=== PATIENT | female | born 1995 | race Caucasian/White ===

== ENCOUNTER 2022-12-29 00:59 | Emergency (ER) | payer BC ==
[2022-12-29] MEDS ORDERED: HYDROmorphone 1 MG/ML Syringe IVPUSH STA (03:39)
[2022-12-29] MEDS ORDERED: Ondansetron 4 MG/2 ML SDV IVPUSH ONE (03:39)
[2022-12-29] MEDS ORDERED: Sodium Chloride 0.9% 1,000 ML IV SCH (03:45)
[2022-12-29 05:00] LABS: A/G RATIO 0.6 (1-2); ALBUMIN 2.6 g/dl (3.4-5.0); ANION GAP 13.1 (5-15); BILIRUBIN TOTAL 0.8 mg/dL (0.2-1.0); BUN/CREATININE RATIO 11.7 (14-18); CALCIUM 8.7 mg/dL (8.5-10.1); CREATININE 0.6 mg/dL (0.55-1.02); EST CRCL DRUG DOSING (CG) 111.39 mL/min; PROTEIN TOTAL,TP 6.8 g/dl (6.4-8.2)
[2022-12-29 05:07] LABS: HEMATOCRIT 35.8 % (34.1-44.9); MEAN CORPUSCULAR HEMOGLOBIN 29.6 pg (25.6-32.2); MEAN CORPUSCULAR HGB CONC 33.5 g/dl (32.2-35.5); MEAN CORPUSCULAR VOLUME 88.2 fl (79.4-94.8); MEAN PLATELET VOLUME 11.9 fl (9.4-12.3); PLATELET COUNT,PLT 261 K/mm3 (182-369); RED BLOOD CELL COUNT 4.06 M/mm3 (3.98-5.22); WHITE BLOOD CELL COUNT,WBC 11.37 K/mm3 (3.98-10.04)
[2022-12-29 05:13] LABS: POTASSIUM,K 4.1 mEq/L (3.5-5.1)
[2022-12-29 06:18] LABS: BAND PERCENT MAN 1 % (0-10); BASOPHILS PERCENT MAN 0 (0.1-1.2); EOSINOPHILS PERCENT MAN 1 % (0.7-5.8); LYMPHOCYTES % ATYPICAL MANUAL 0 %; LYMPHOCYTES PERCENT MAN 15 % (20-40); MONOCYTES PERCENT MAN 10 % (2-10)
[2022-12-29 06:19] LABS: PLATELET COUNT ESTIMATE ADEQUATE
[2022-12-29 10:54] LABS: ALANINE AMINOTRANSFERASE,ALT 128 U/L (14-59); ASPARTATE AMNIOTRANSFERASE,AST 145 U/L (15-37)
[2022-12-29] MEDS ORDERED: Lactated Ringers 1,000 ML IV SCH (12:45)
[2022-12-29 13:07] LABS: HEPATITIS B SURFACE AG NONREACTIVE (NONREACTIVE)
[2022-12-29 16:22] LABS: A/G RATIO 0.6 (1-2); ALBUMIN 2.6 g/dl (3.4-5.0); BILIRUBIN TOTAL 0.6 mg/dL (0.2-1.0); BUN/CREATININE RATIO 7.1 (14-18); CALCIUM 8.6 mg/dL (8.5-10.1); CREATININE 0.7 mg/dL (0.55-1.02); EST CRCL DRUG DOSING (CG) 95.48 mL/min; PROTEIN TOTAL,TP 6.8 g/dl (6.4-8.2)
== END 2022-12-29 17:22 | disposition home or self-care (01) ==
LOC: JD.ED 00:59
DX: O99.613 Diseases of the digestive system complicating pregnancy, third trimester (principal); K80.70 Calculus of gallbladder and bile duct without cholecystitis without obstruction; Z3A.33 33 weeks gestation of pregnancy
CPT/HCPCS: 36415; 76705; 76815; 80053; 83690; 84450; 84460; 84703; 85007; 85027; 86592; 86762; 86803; 86850; 86900; 86901; 87340; 87449; 96361; 96374; 96375; 99285; J1170; J2405; J7030; J7120; G0433

== ENCOUNTER 2023-02-22 16:30 | Inpatient (IN) | payer BC ==
[2023-02-22 20:04] LABS: HEMATOCRIT 37.3 % (34.1-44.9); HEMOGLOBIN 12.4 gm/dl (11.2-15.7); MEAN CORPUSCULAR HGB CONC 33.2 g/dl (32.2-35.5); MEAN CORPUSCULAR VOLUME 87.4 fl (79.4-94.8); MEAN PLATELET VOLUME 11.8 fl (9.4-12.3); PLATELET COUNT,PLT 231 K/mm3 (182-369); RED BLOOD CELL COUNT 4.27 M/mm3 (3.98-5.22); WHITE BLOOD CELL COUNT,WBC 10.81 K/mm3 (3.98-10.04)
[2023-02-22] MEDS: Misoprostol 25 MCG (1/4 of 100 MCG) Tab VAG SCH (20:11)
[2023-02-23] MEDS: Misoprostol 25 MCG (1/4 of 100 MCG) Tab VAG SCH ×2 (00:10→04:15)
[2023-02-23] MEDS ORDERED: Ondansetron 4 MG in Sodium Chloride 0.9% 50 ML IV PRN (08:11)
[2023-02-23] MEDS ORDERED: Nalbuphine 10 MG/0.5 ML Syringe IVPUSH PRN (08:13)
[2023-02-23] MEDS ORDERED: Oxytocin/Lactated Ringers 10 UNIT/1,000 ML BAG IV SCH (08:15)
[2023-02-23] MEDS ORDERED: Ondansetron 4 MG/2 ML SDV IV PRN (08:22)
[2023-02-23] MEDS: Lactated Ringers 1,000 ML IV SCH ×2 (08:31→13:18)
[2023-02-23] MEDS ORDERED: fentaNYL 100 MCG/2 ML SDV EPIDUR PRN (08:53)
[2023-02-23] MEDS ORDERED: ePHEDrine 50 MG/ML SDV IVPUSH PRN ×2 (08:53→17:12)
[2023-02-23] MEDS ORDERED: diphenhydrAMINE 50 MG/ML SDV IVPUSH PRN ×3 (08:53→17:12)
[2023-02-23] MEDS ORDERED: Bupivacaine/fentaNYL/NS 100 ML Bag EPIDUR PRN (08:53)
[2023-02-23] MEDS ORDERED: Penicillin G Potassium 5 MILLUNITS in Sodium Chloride 0.9% 100 ML IV ONE (09:00)
[2023-02-23 10:34] LABS: A/G RATIO 0.6 (1-2); ALBUMIN 2.5 g/dl (3.4-5.0); ANION GAP 13.1 (5-15); BILIRUBIN TOTAL 0.1 mg/dL (0.2-1.0); BUN/CREATININE RATIO 13.3 (14-18); CALCIUM 8.9 mg/dL (8.5-10.1); CREATININE 0.6 mg/dL (0.55-1.02); EST CRCL DRUG DOSING (CG) 116.5 mL/min; POTASSIUM,K 4.1 mEq/L (3.5-5.1); PROTEIN TOTAL,TP 6.4 g/dl (6.4-8.2)
[2023-02-23 11:05] LABS: CREATININE,URINE RAND 114.6 mg/dL (30.0-125.0); PROTEIN,URINE RANDOM 20.4 mg/dL (0.0-11.8)
[2023-02-23] MEDS ORDERED: Penicillin G Potassium 2.5 MILLUNITS in Sodium Chloride 0.9% 100 ML IV SCH (13:00)
[2023-02-23] MEDS ORDERED: Metoclopramide 10 MG/2 ML SDV IVPUSH ONE (13:52)
[2023-02-23] MEDS ORDERED: Citric Acid/Sodium Citrate Solution 30 ML Cup PO STA (13:54)
[2023-02-23] MEDS ORDERED: Azithromycin 500 MG in Sodium Chloride 0.9% 250 ML IV ONE (14:11)
[2023-02-23] MEDS ORDERED: Bupivacaine 0.5% 30 ML SDV ONE (14:16)
[2023-02-23] MEDS ORDERED: Lidocaine 2% with EPINEPHrine 1:200,000 20 ML SDV ONE (14:19)
[2023-02-23] MEDS ORDERED: Sodium Bicarbonate 8.4% 50 MEQ/50 ML SDV ONE (14:20)
[2023-02-23] MEDS ORDERED: fentaNYL 100 MCG/2 ML SDV ONE (14:38)
[2023-02-23] MEDS ORDERED: ceFAZolin 2 GM Vial ONE (14:45)
[2023-02-23] MEDS ORDERED: Oxytocin 10 Units/1 ML SDV ONE ×2 (14:57→15:08)
[2023-02-23] MEDS ORDERED: Lactated Ringers 1,000 ML ONE (15:01)
[2023-02-23] MEDS ORDERED: Ondansetron 4 MG/2 ML SDV ONE (15:02)
[2023-02-23] MEDS ORDERED: Ketorolac 15 MG/ML SDV ONE (15:02)
[2023-02-23] MEDS ORDERED: Morphine PF 1 MG/ML Amp ONE (15:03)
[2023-02-23] MEDS ORDERED: Ondansetron 4 MG/2 ML SDV IVPUSH PRN (15:46)
[2023-02-23] MEDS ORDERED: fentaNYL 100 MCG/2 ML SDV IVPUSH PRN (15:46)
[2023-02-23] MEDS ORDERED: Dextrose 5%-Lactated Ringers 1,000 ML IV SCH (17:12)
[2023-02-23] MEDS ORDERED: Ibuprofen 600 MG Tab PO PRN (17:12)
[2023-02-23] MEDS ORDERED: Ketorolac 30 MG/ML SDV IVPUSH SCH (17:12)
[2023-02-23] MEDS ORDERED: Naloxone 0.4 MG/ML SDV IVPUSH PRN (17:12)
[2023-02-23] MEDS ORDERED: Lidocaine 1% 10 ML MDV ONE (18:00)
[2023-02-23] MEDS ORDERED: Lidocaine 1.5% with EPINEPHrine 1:200,000 5 ML Amp ONE (18:00)
[2023-02-24] MEDS: Ketorolac 30 MG/ML SDV IVPUSH SCH ×2 (02:08→08:22)
[2023-02-24 05:54] LABS: BASOPHILS ABSOLUTE AUTO 0.03 K/mm3 (0.01-0.08); BASOPHILS PERCENT AUTO 0.2 % (0.1-1.2); EOSINOPHILS ABSOLUTE AUTO 0.11 K/mm3 (0.04-0.36); EOSINOPHILS PERCENT AUTO 0.8 (0.7-5.8); HEMATOCRIT 33.8 % (34.1-44.9); IMMATURE GRAN ABSOLUTE AUTO 0.03 K/mm3 (0.00-0.10); IMMATURE GRAN PERCENT AUTO 0.2 % (<=1.0); LYMPHOCYTES PERCENT AUTO 13.8 % (19.3-51.7); MEAN CORPUSCULAR HGB CONC 32.5 g/dl (32.2-35.5); MEAN CORPUSCULAR VOLUME 89.2 fl (79.4-94.8); MEAN PLATELET VOLUME 11.4 fl (9.4-12.3); MONOCYTES ABSOLUTE AUTO 1.09 K/mm3 (0.24-0.36); MONOCYTES PERCENT AUTO 8.3 % (4.7-12.5); NEUTROPHILS ABSOLUTE AUTO 10.03 K/mm3 (1.56-6.13); NEUTROPHILS PERCENT AUTO 76.7 % (34.0-71.1); PLATELET COUNT,PLT 183 K/mm3 (182-369); RED BLOOD CELL COUNT 3.79 M/mm3 (3.98-5.22); WHITE BLOOD CELL COUNT,WBC 13.09 K/mm3 (3.98-10.04)
[2023-02-24] MEDS ORDERED: Sodium Chloride 0.9% 1,000 ML IV ONE (13:31)
[2023-02-24] MEDS: Acetaminophen/oxyCODONE 325-5 MG Tab PO PRN (21:25)
[2023-02-25] MEDS: Acetaminophen/oxyCODONE 325-5 MG Tab PO PRN (06:42)
== END 2023-02-25 11:50 | disposition home or self-care (01) | DRG 540 ==
LOC: JD.OB 16:30 → OBSVTOIN 02-23 16:30 → JD.OB 02-23 16:31
PROVIDERS: ADMIT Family Medicine; ATTEND Family Medicine
PROC: 10D00Z1 Extraction of Products of Conception, Low, Open Approach (ICD-10-PCS; principal; 2023-02-23)
PROC: 3E033VJ Introduction of Other Hormone into Peripheral Vein, Percutaneous Approach (ICD-10-PCS; 2023-02-23)
PROC: 10907ZC Drainage of Amniotic Fluid, Therapeutic from Products of Conception, Via Natural or Artificial Opening (ICD-10-PCS; 2023-02-23)
DX: O76 Abnormality in fetal heart rate and rhythm complicating labor and delivery (principal); O99.284 Endocrine, nutritional and metabolic diseases complicating childbirth; O99.214 Obesity complicating childbirth; O48.0 Post-term pregnancy; Z37.0 Single live birth; E28.2 Polycystic ovarian syndrome; Z86.16 Personal history of COVID-19; Z90.49 Acquired absence of other specified parts of digestive tract; Z3A.40 40 weeks gestation of pregnancy
CPT/HCPCS: 01967; 01968; 36415; 51702; 59025; 80053; 82570; 84156; 85025; 85027; 86592; 99140; A9270-GY; J0456; J0690; J1200; J1885; J2274; J2300; J2405; J2540; J2590; J2765; J3010; J3490; J7030; J7050; J7120; J7121

== ENCOUNTER 2025-07-19 04:45 | Emergency (ER) | payer BC ==
[2025-07-19] MEDS ORDERED: Sodium Chloride 0.9% 10 ML Syringe FLUSH PRN (05:15)
[2025-07-19 05:40] LABS: BASOPHILS ABSOLUTE AUTO 0.1 K/mm3 (0.0-0.2); BASOPHILS PERCENT AUTO 0.6 % (0.0-1.0); EOSINOPHILS ABSOLUTE AUTO 0.3 K/mm3 (0.0-0.4); EOSINOPHILS PERCENT AUTO 2.7 % (0.0-6.0); IMMATURE GRAN ABSOLUTE AUTO 0.11 K/mm3 (0.00-0.05); IMMATURE GRAN PERCENT AUTO 1.0 % (0.0-0.4); LYMPHOCYTES ABSOLUTE AUTO 3.1 K/mm3 (1.0-4.8); LYMPHOCYTES PERCENT AUTO 26.5 % (24.0-44.0); MEAN PLATELET VOLUME 10.1 fl (9.4-12.3); MONOCYTES ABSOLUTE AUTO 0.8 K/mm3 (0.0-0.8); MONOCYTES PERCENT AUTO 6.8 % (0.0-8.0); NEUTROPHILS ABSOLUTE AUTO 7.2 K/mm3 (1.8-7.7); NEUTROPHILS PERCENT AUTO 62.4 % (41.0-71.0); NRBC ABSOLUTE 0.00 (0.00-0.02); NRBC PERCENT 0.0 % (0.0-0.2); PLATELET COUNT,PLT 200 K/mm3 (150-400); RED BLOOD CELL COUNT 3.50 M/mm3 (4.10-5.30); WHITE BLOOD CELL COUNT,WBC 11.55 K/mm3 (3.9-11.3)
[2025-07-19 05:57] LABS: APPEARANCE,URINE CLEAR (Clear); GLUCOSE,URINE NEGATIVE (Negative); OCCULT BLOOD,URINE 2+ (Negative)
[2025-07-19 06:02] LABS: A/G RATIO 0.6 (1-2); ALANINE AMINOTRANSFERASE,ALT 31.0 U/L (14-59); ASPARTATE AMNIOTRANSFERASE,AST 34.0 U/L (15-37); BILIRUBIN TOTAL 0.3 mg/dL (0.2-1.0); BLOOD UREA NITROGEN,BUN 11.0 mg/dL (7-18); CARBON DIOXIDE,CO2 28.0 mEq/L (21-32); CHLORIDE,CL 105.0 mEq/L (98-107); CREATININE 0.8 mg/dL (0.55-1.02); EST CRCL DRUG DOSING (CG) 81.33 mL/min; ESTIMATED GFR 102.0 mL/min (>60); GLUCOSE RANDOM 76.0 mg/dL (70-99); POTASSIUM,K 3.8 mEq/L (3.5-5.1); PROTEIN TOTAL,TP 6.2 g/dl (6.4-8.2); SODIUM,NA 142.0 mEq/L (136-145)
== END 2025-07-19 08:04 | disposition home or self-care (01) ==
LOC: JD.ED 04:45
DX: O99.893 Other specified diseases and conditions complicating puerperium (principal); M79.89 Other specified soft tissue disorders; O90.81 Anemia of the puerperium; E83.42 Hypomagnesemia; Z86.16 Personal history of COVID-19; Z90.49 Acquired absence of other specified parts of digestive tract; Z79.899 Other long term (current) drug therapy
CPT/HCPCS: 36415; 71045; 80053; 81001; 83735; 83880; 85025; 87428; 93005; 93970; 99284; A9270